=== PATIENT | female | born 1970 | race Caucasian/White ===

== ENCOUNTER 2016-12-17 00:27 | Inpatient (IN) | payer OTHER ==
[2016-12-17] MEDS ORDERED: Sodium Chloride 0.9% 500 ML IV ONE (01:06)
[2016-12-17 01:34] LABS: URINE BILIRUBIN NEGATIVE (NEGATIVE); URINE CLARITY Clear (Clear); URINE COLOR Colorless (YELLOW); URINE GLUCOSE (UA) NORMAL (Normal); URINE LEUKOCYTE ESTERASE NEG Leu/uL (Negative); URINE NITRATE NEGATIVE (NEGATIVE); URINE PROTEIN NEGATIVE (NEGATIVE); URINE UROBILINOGEN NORMAL mg/dL (0.2-1.0)
[2016-12-17 01:36] LABS: URINE BLOOD NEGATIVE (NEGATIVE)
[2016-12-17 01:40] LABS: HCG,QUALITATIVE URINE NEGATIVE (NEGATIVE)
[2016-12-17 01:49] LABS: BASO # 0.1 K/uL (0.0-0.2); EOS # 0.3 K/uL (0.0-0.7); EOS % 3.5 % (0.0-4.0); LYMPH % 25.2 % (20.0-40.0); MEAN CELL VOLUME 83.9 fL (81.0-99.0); MEAN CORPUSCULAR HEMOGLOBIN 26.3 pg (27.0-31.0); MEAN CORPUSCULAR HGB CONC 31.4 g/dL (33.0-37.0); MEAN PLATELET VOLUME 7.4 fL (7.2-11.7); MONO # 0.4 K/uL (0.0-0.8); MONO % 5.1 % (0.0-10.0); NEUT # 5.2 K/uL (1.8-7.0); NEUT % 65.2 % (50.0-75.0); NRBC % 0.1 % (0.0-2.0); RBC 4.16 Mil/uL (3.80-5.20); RED CELL DISTRIBUTION WIDTH 16.4 % (11.5-14.5)
[2016-12-17 02:00] LABS: ALBUMIN 4.1 g/dL (3.5-5.0)
[2016-12-17 02:03] LABS: AST/SGOT 65 U/L (14-36); BLOOD UREA NITROGEN 8 mg/dL (7-17); GFR AFRICAN-AMERICAN > 60; GFR NON-AFRICAN AMERICAN 59
[2016-12-17 02:04] LABS: ALT/SGPT 60 U/L (9-52); CALCIUM 7.7 mg/dl (8.6-10.4); LIPASE 178 U/L (23-300)
[2016-12-17] MEDS ORDERED: Ammonia 2% Inhalant ONE (02:17)
[2016-12-17 02:57] LABS: BARBITURATES, UR NEGATIVE (NEGATIVE); BENZODIAZEPINES, UR NEGATIVE (NEGATIVE)
[2016-12-17 03:01] LABS: OPIATES, UR NEGATIVE (NEGATIVE); PHENCYCLIDINE, UR NEGATIVE (NEGATIVE)
--- NOTE | 2016-12-17 03:16 | C.PDOC ---
History Of Present Illness 46 y/o female presents to ED for evaluation of abdominal pain- primarily suprapubic that radiates to the back since 17:00 today. Denies history of similar symptoms in the past. Patient notes foul odor in urine, urinary frequency, nausea, and diarrhea. Otherwise, patient denies any vomiting, fever, vaginal discharge or bleeding. Time Seen by Provider: 12/17/16 00:56 Chief Complaint (Nursing): Back Pain History Per: Patient, Family History/Exam Limitations: language barrier (plant facilities technician used) Onset/Duration Of Symptoms: Hrs Current Symptoms Are (Timing): Still Present Location Of Pain/Discomfort: Suprapubic Radiation Of Pain To:: Back, Flank Quality Of Discomfort: "Pain" Associated Symptoms: Nausea, Diarrhea, Back Pain, Urinary Symptoms. denies: Fever, Chills, Vomiting, Loss Of Appetite, Chest Pain, Constipation Exacerbating Factors: None Alleviating Factors: None Recent travel outside of the [place]: No Additional History Per: Patient Abnormal Vaginal Bleeding: No Past Medical History Reviewed: Historical Data, Nursing Documentation, Vital Signs Vital Signs: Last Vital Signs Temp 98.0 F 12/19/16 06:00 Pulse 75 12/18/16 18:53 Resp 18 12/18/16 18:53 BP 138/73 12/19/16 05:52 Pulse Ox 99 12/19/16 07:08 - Medical History PMH: Arthritis, HTN Family History: States: Unknown Family Hx - Social History Hx Tobacco Use: No Hx Alcohol Use: Yes Hx Substance Use: No - Immunization History Hx Tetanus Toxoid Vaccination: No Hx Influenza Vaccination: No Hx Pneumococcal Vaccination: No Review Of Systems Except As Marked, All Systems Reviewed And Found Negative. Constitutional: Negative for: Fever, Chills Gastrointestinal: Positive for: Nausea, Abdominal Pain, Diarrhea. Negative for : Vomiting, Constipation Genitourinary: Positive for: Frequency. Negative for: Dysuria, Incontinence, Hematuria Musculoskeletal: Positive for: Back Pain Neurological: Negative for: Weakness, Numbness Physical Exam - Physical Exam Appears: Non-toxic, No Acute Distress Skin: Normal Color, Warm, Dry Head: Atraumatic, Normacephalic Eye(s): bilateral: Normal Inspection, EOMI Nose: Normal Oral Mucosa: Moist Neck: Normal ROM, Supple Chest: Symmetrical Cardiovascular: Rhythm Regular, No Murmur Respiratory: Normal Breath Sounds, No Rales, No Rhonchi, No Wheezing Gastrointestinal/Abdominal: Soft, Tenderness (diffuse), No Distention, No Guarding, No Rebound Back: Paraspinal Tenderness (lumbar) Extremity: Normal ROM Neurological/Psych: Oriented x3, Normal Speech, Normal Cognition ED Course And Treatment - Laboratory Results Result Diagrams: 12/18/16 06:45 12/18/16 06:45 ECG: Interpreted By Me, Viewed By Me ECG Rhythm: Sinus Tachycardia ECG Interpretation: No Acute Changes Rate From EC (bpm) O2 Sat by Pulse Oximetry: 99 Pulse Ox Interpretation: Normal Progress Note: Blood work, urinalysis, abd & pelvis CT, head CT, EKG, CXR ordered and reviewed. Dr Saldana and I were called over by nurse for unresponsive pt. Pt has unlabored breathing and strong pulse. Not responsive to ammonia inhalants. Not responsive to painful stimuli, noted to have clenched jaw , and left arm. No convulsions noted. Dr Saldana ordered Ativan 3 mg was given. Pt became arousable. family notes she has had episode similar previously when she wakes up on her own. No known h/o seizures or work up for seizures. Patient became unresponsive again at CT scan, rapid response called and was given another dose of Ativan. Patient became alert. Dr Saldana discussed case with Dr Hallman who evalauted pt at bedside and agreed upon admmission to ICU. Dr Saldana discsussed case with Dr Salas, agreed upon adimission. Disposition - Disposition Disposition Time: 06:00 Condition: STABLE - Clinical Impression Clinical Impression: Alcohol intoxication, Abdominal pain, Seizure - PA / BAKERY CLERK / Resident Statement MD/DO has reviewed & agrees with the documentation as recorded. - Scribe Statement The provider has reviewed the documentation as recorded by the Maxwell Gold All medical record entries made by the Maxwell were at my direction and personally dictated by me. I have reviewed the chart and agree that the record accurately reflects my personal performance of the history, physical exam, medical decision making, and the department course for this patient. I have also personally directed, reviewed, and agree with the discharge instructions and disposition.
[2016-12-17] MEDS ORDERED: levETIRAcetam 1,000 MG in Sodium Chloride 0.9% 100 ML IVPB STA (03:27)
[2016-12-17] MEDS ORDERED: Folic Acid 1 MG, Thiamine 100 MG, Multivitamin (MVI) 10 ML in Dextrose 5% In Water 1,00... IV ONE (04:30)
[2016-12-17] MEDS ORDERED: Sodium Chloride 0.9% 1,000 ML IV SCH (04:30)
--- NOTE | 2016-12-17 04:30 | CP.CCUPN ---
CCU Subjective - Physician Review Events Since Last Encounter (Free Text): 12/17/16 The Patient was seen and examined at the bedside, Medical records reviewed, all clinical/lab/hemodynamic/radiographic data were reviewed and management issues were discussed and formulated, 46 Y/O F with PMHx of HTN, arthritis and H/O seizures for 3 years (never been worked up) Who presents to ED for evaluation of suprapubic abdominal pain that radiates to the back In the ER she was initially unresponsive, Ammonia inhalant used, no reaction the she had witnessed generalized tonic-clonic seizures in ER [id number]: [facility] was called since she became unresponsive while getting CT scan of head. Pt Sz condition was controlled with Ativan (received total of 6 mg) Head Ct scan done and was No acute intracranial abnormality. Labs revelries alcohol level of 257 ER VS:187/105, HR 99, O2 sat 100% 2LPM NC, R 17 Blood glucose checked, controlled Currently she is delirious, does not follow basic commands No signs of pain noted at this time, breathing comfortable and unlabored. She was admitted to ICU for further neurological work up and waxing and weaning of mental status, placed on Q1H Neuro check And to address alcohol abuse and uncontrolled BP CCU Objective - Vital Signs / Intake & Output Vital Signs (Last 4 hours): Vital Signs Temp Pulse Resp BP Pulse Ox 12/17/16 03:28 99 12/17/16 00:40 98.2 F 103 H 18 188/108 H 99 Intake and Output (Last 8hrs): Intake & Output 12/16/16 12/16/16 12/17/16 14:59 22:59 06:59 Weight 210 lb - Physical Exam Physical Exam Limitations: Positive for: Altered Mental Status Head: Positive for: Atraumatic, Normocephalic Pupils: Positive for: PERRL. Negative for: Sluggish, Non-Reactive Extroacular Muscles: Positive for: EOMI Conjunctiva: Positive for: Normal. Negative for: Injected, Icteric Mouth: Positive for: Moist Mucous Membranes Neck: Positive for: Normal Range of Motion, Trachea Midline. Negative for: Meningeal Signs, MIDLINE TENDERNESS, Paraspinal Tenderness, JVD, Lymphadenopathy , Bruit, Other Respiratory/Chest: Positive for: Clear to Auscultation, Good Air Exchange. Negative for: Respiratory Distress, Accessory Muscle Use Cardiovascular: Positive for: Regular Rate and Rhythm, Normal S1, S2, Peripheal Pulses Present. Negative for: Murmurs, Irregular Rhythm Abdomen: Positive for: Tenderness (Epigastric), Distention, Normal Bowel Sounds. Negative for: Peritoneal Signs Back: Negative for: CVA Tenderness Upper Extremity: Positive for: Normal Inspection, Normal ROM, NORMAL PULSES, Capillary Refill < 2s. Negative for: Cyanosis, Edema Lower Extremity: Positive for: Normal Inspection, NORMAL PULSES. Negative for: Edema, CALF TENDERNESS Neurological: Positive for: Motor Func Grossly Intact, Normal Sensory Function Psychiatric: Positive for: Alert, Intoxicated - Medications Active Medications: Active Medications Generic Name Dose Route Start Last Admin Trade Name Freq PRN Reason Stop Dose Admin Enoxaparin Sodium 40 mg 12/17/16 10:00 Lovenox SC DAILY [facility] Folic Acid 1 mg/ Thiamine HCl 1,011.2 mls @ 125 mls/hr 12/17/16 04:30 100 mg/ Multivitamins/Vitamin IV C 10 ml/ Dextrose .[id number] [facility] - Patient Studies Lab Studies: Lab Studies 12/17/16 12/17/16 12/17/16 Range/Units 02:24 02:00 01:46 WBC (4.8-10.8) K/uL RBC (3.80-5.20) Mil/uL Hgb (11.0-16.0) g/dL Hct (34.0-47.0) % MCV (81.0-99.0) fL MCH (27.0-31.0) pg MCHC (33.0-37.0) g/dL RDW (11.5-14.5) % Plt Count (130-400) K/uL MPV (7.2-11.7) fL Neut % (Auto) (50.0-75.0) % Lymph % (Auto) (20.0-40.0) % Garrett % (Auto) (0.0-10.0) % Eos % (Auto) (0.0-4.0) % Baso % (Auto) (0.0-2.0) % Neut # (1.8-7.0) K/uL Lymph # (1.0-4.3) K/uL Garrett # (0.0-0.8) K/uL Eos # (0.0-0.7) K/uL Baso # (0.0-0.2) K/uL Sodium 141 (132-148) mmol/L Potassium 4.3 (3.6-5.2) mmol/L Chloride 102 (98-107) mmol/L Carbon Dioxide 23 (22-30) mmol/L Anion Gap 20 (10-20) BUN 8 (7-17) mg/dL Creatinine 1.0 (0.7-1.2) MG/DL Est GFR ( Amer) > 60 Est GFR (Non-Af Amer) 59 Random Glucose 100 (65-105) mg/dL Calcium 7.7 L (8.6-10.4) mg/dl Total Bilirubin 0.7 (0.2-1.3) mg/dL AST 65 H D (14-36) U/L ALT 60 H D (9-52) U/L Alkaline Phosphatase 61 (38-126) U/L Total Protein 8.2 (6.3-8.3) g/dL Albumin 4.1 (3.5-5.0) g/dL Globulin 4.1 H (2.2-3.9) gm/dL Albumin/Globulin Ratio 1.0 (1.0-2.1) Lipase 178 (23-300) U/L Urine Color (YELLOW) Urine Clarity (Clear) Urine pH (5.0-8.0) Ur Specific [place] (1.003-1.030) Urine Protein (NEGATIVE) mg/dL Urine Glucose (UA) (Normal) mg/dL Urine Ketones (NEGATIVE) mg/dL Urine Blood (NEGATIVE) Urine Nitrate (NEGATIVE) Urine Bilirubin (NEGATIVE) Urine Urobilinogen (0.2-1.0) mg/dL Ur Leukocyte Esterase (Negative) Mignon/uL Urine WBC (Auto) (0-5) /hpf Urine RBC (Auto) (0-3) /hpf Urine HCG, Qual (NEGATIVE) Urine Opiates Screen Negative (NEGATIVE) Urine Methadone Screen Negative (NEGATIVE) Ur Barbiturates Screen Negative (NEGATIVE) Ur Phencyclidine Scrn Negative (NEGATIVE) Ur Amphetamines Screen Negative (NEGATIVE) U Benzodiazepines Scrn Negative (NEGATIVE) U Oth Cocaine Metabols Negative (NEGATIVE) U Cannabinoids Screen Negative (NEGATIVE) Alcohol, Quantitative 257 H (0-10) mg/dl 12/17/16 12/17/16 Range/Units 01:46 01:29 WBC 8.0 (4.8-10.8) K/uL RBC 4.16 (3.80-5.20) Mil/uL Hgb 11.0 (11.0-16.0) g/dL Hct 34.9 (34.0-47.0) % MCV 83.9 D (81.0-99.0) fL MCH 26.3 L (27.0-31.0) pg MCHC 31.4 L (33.0-37.0) g/dL RDW 16.4 H (11.5-14.5) % Plt Count 310 (130-400) K/uL MPV 7.4 (7.2-11.7) fL Neut % (Auto) 65.2 (50.0-75.0) % Lymph % (Auto) 25.2 (20.0-40.0) % Garrett % (Auto) 5.1 (0.0-10.0) % Eos % (Auto) 3.5 (0.0-4.0) % Baso % (Auto) 1.0 (0.0-2.0) % Neut # 5.2 (1.8-7.0) K/uL Lymph # 2.0 (1.0-4.3) K/uL Garrett # 0.4 (0.0-0.8) K/uL Eos # 0.3 (0.0-0.7) K/uL Baso # 0.1 (0.0-0.2) K/uL Sodium (132-148) mmol/L Potassium (3.6-5.2) mmol/L Chloride (98-107) mmol/L Carbon Dioxide (22-30) mmol/L Anion Gap (10-20) BUN (7-17) mg/dL Creatinine (0.7-1.2) MG/DL Est GFR ( Amer) Est GFR (Non-Af Amer) Random Glucose (65-105) mg/dL Calcium (8.6-10.4) mg/dl Total Bilirubin (0.2-1.3) mg/dL AST (14-36) U/L ALT (9-52) U/L Alkaline Phosphatase (38-126) U/L Total Protein (6.3-8.3) g/dL Albumin (3.5-5.0) g/dL Globulin (2.2-3.9) gm/dL Albumin/Globulin Ratio (1.0-2.1) Lipase (23-300) U/L Urine Color Colorless (YELLOW) Urine Clarity Clear (Clear) Urine pH 6.0 (5.0-8.0) Ur Specific [place] 1.002 L (1.003-1.030) Urine Protein Negative (NEGATIVE) mg/dL Urine Glucose (UA) Normal (Normal) mg/dL Urine Ketones Negative (NEGATIVE) mg/dL Urine Blood Negative (NEGATIVE) Urine Nitrate Negative (NEGATIVE) Urine Bilirubin Negative (NEGATIVE) Urine Urobilinogen Normal (0.2-1.0) mg/dL Ur Leukocyte Esterase Neg (Negative) Mignon/uL Urine WBC (Auto) 1 (0-5) /hpf Urine RBC (Auto) < 1 (0-3) /hpf Urine HCG, Qual Negative (NEGATIVE) Urine Opiates Screen (NEGATIVE) Urine Methadone Screen (NEGATIVE) Ur Barbiturates Screen (NEGATIVE) Ur Phencyclidine Scrn (NEGATIVE) Ur Amphetamines Screen (NEGATIVE) U Benzodiazepines Scrn (NEGATIVE) U Oth Cocaine Metabols (NEGATIVE) U Cannabinoids Screen (NEGATIVE) Alcohol, Quantitative (0-10) mg/dl Laboratory Results - last 24 hr 12/17/16 12/17/16 12/17/16 01:29 01:46 01:46 WBC 8.0 RBC 4.16 Hgb 11.0 Hct 34.9 MCV 83.9 D MCH 26.3 L MCHC 31.4 L RDW 16.4 H Plt Count 310 MPV 7.4 Neut % (Auto) 65.2 Lymph % (Auto) 25.2 Garrett % (Auto) 5.1 Eos % (Auto) 3.5 Baso % (Auto) 1.0 Neut # 5.2 Lymph # 2.0 Garrett # 0.4 Eos # 0.3 Baso # 0.1 Sodium 141 Potassium 4.3 Chloride 102 Carbon Dioxide 23 Anion Gap 20 BUN 8 Creatinine 1.0 Est GFR ( Amer) > 60 Est GFR (Non-Af Amer) 59 Random Glucose 100 Calcium 7.7 L Total Bilirubin 0.7 AST 65 H D ALT 60 H D Alkaline Phosphatase 61 Total Protein 8.2 Albumin 4.1 Globulin 4.1 H Albumin/Globulin Ratio 1.0 Lipase 178 Urine Color Colorless Urine Clarity Clear Urine pH 6.0 Ur Specific [place] 1.002 L Urine Protein Negative Urine Glucose (UA) Normal Urine Ketones Negative Urine Blood Negative Urine Nitrate Negative Urine Bilirubin Negative Urine Urobilinogen Normal Ur Leukocyte Esterase Neg Urine WBC (Auto) 1 Urine RBC (Auto) < 1 Urine HCG, Qual Negative Urine Opiates Screen Urine Methadone Screen Ur Barbiturates Screen Ur Phencyclidine Scrn Ur Amphetamines Screen U Benzodiazepines Scrn U Oth Cocaine Metabols U Cannabinoids Screen Alcohol, Quantitative 12/17/16 12/17/16 02:00 02:24 WBC RBC Hgb Hct MCV MCH MCHC RDW Plt Count MPV Neut % (Auto) Lymph % (Auto) Garrett % (Auto) Eos % (Auto) Baso % (Auto) Neut # Lymph # Garrett # Eos # Baso # Sodium Potassium Chloride Carbon Dioxide Anion Gap BUN Creatinine Est GFR ( Amer) Est GFR (Non-Af Amer) Random Glucose Calcium Total Bilirubin AST ALT Alkaline Phosphatase Total Protein Albumin Globulin Albumin/Globulin Ratio Lipase Urine Color Urine Clarity Urine pH Ur Specific [place] Urine Protein Urine Glucose (UA) Urine Ketones Urine Blood Urine Nitrate Urine Bilirubin Urine Urobilinogen Ur Leukocyte Esterase Urine WBC (Auto) Urine RBC (Auto) Urine HCG, Qual Urine Opiates Screen Negative Urine Methadone Screen Negative Ur Barbiturates Screen Negative Ur Phencyclidine Scrn Negative Ur Amphetamines Screen Negative U Benzodiazepines Scrn Negative U Oth Cocaine Metabols Negative U Cannabinoids Screen Negative Alcohol, Quantitative 257 H EKG/Cardiology Studies: Cardiology / EKG Studies 12/17/16 02:50 EKG [ELECTROCARDIOGRAM] Stat Comment: bed 8a Mode Of Transportation: BED Reason For Exam: cp Review of Systems - Review of Systems Systems not reviewed;Unavailable: Intoxicated Critical Care Progress Note - Extremities/Vascular Does the Patient have a Central Venous Catheter?: No Does the Patient need a Central Venous Catheter?: No Does the Patient have a Bryan Catheter?: No Does the Patient need a Bryan Catheter?: No - Nutrition Nutrition: Nutrition Category Date Time Status Heart Healthy Diet [DIET] Diets 12/17/16 Breakfast Ordered Assessment/Plan (1) Alcohol intoxication delirium Current Visit: Yes Status: Acute (2) Alcohol related seizure Current Visit: Yes Status: Acute (3) Alcohol intoxication Current Visit: Yes Status: Acute (4) HTN (hypertension) Current Visit: Yes Status: Acute - Assessment and Plan (Free Text) Assessment: - Admit to ICU, Admit to ICU for close observation and serial BP examination - Frequent Neuro check - NPO - Speech and swallow evaluation - PT/OT evaluation - Neurology consult - Consider EEG - Banana Bag - CIWA q4h - Thiamine, Folate, MVI - IV Hydrations - Blood glucose checked, controlled - Telemetry monitoring to assess for afib though low suspicion for embolus - Frequent neurochecks - Aspiraion and Seizure precautions - HOB elevation 30 degrees - DVT ppx: can do SQH
[2016-12-17 05:05] LABS: ABG ALLEN TEST POS; ARTERIAL BLOOD GAS HCO3 25.6 mmol/L (21-28); ARTERIAL BLOOD GAS HEMOGLOBIN 10.2 g/dL (11.7-17.4); ARTERIAL BLOOD GAS PCO2 57 mm/Hg (35-45); ARTERIAL BLOOD GAS PO2 141 mm/Hg (80-100); ARTERIAL BLOOD GAS TCO2 29.7 mmol/L (22-28)
--- NOTE | 2016-12-17 07:27 | CT ---
PROCEDURE: CT HEAD WITHOUT CONTRAST. HISTORY: seizure COMPARISON: None available. TECHNIQUE: Axial computed tomography images were obtained through the head/brain without intravenous contrast. Radiation dose: Total exam DLP = 1005 mGy-cm. This CT exam was performed using one or more of the following dose reduction techniques: Automated exposure control, adjustment of the mA and/or kV according to patient size, and/or use of iterative reconstruction technique. FINDINGS: HEMORRHAGE: No intracranial hemorrhage. BRAIN: No mass effect or edema. Minimal scattered focal lucencies in the subcortical and periventricular white matter suggestive for chronic microvascular ischemic change. VENTRICLES: Unremarkable. No hydrocephalus. CALVARIUM: Unremarkable. PARANASAL SINUSES: Unremarkable as visualized. No significant inflammatory changes. MASTOID AIR CELLS: Unremarkable as visualized. No inflammatory changes. OTHER FINDINGS: None. IMPRESSION: No acute intracranial abnormality. Minimal chronic microvascular ischemic change. If focal neurologic deficit persists, consider MRI. These findings were preliminarily reported at 3:30 a.m. on 12/17/[address] Rufus Blanco from [facility].
--- NOTE | 2016-12-17 07:37 | RAD ---
PROCEDURE: CHEST RADIOGRAPH, 1 VIEW HISTORY: seizure COMPARISON: 05/10/2014 FINDINGS: LUNGS: Moderate venous congestion with bibasilar airspace opacities and small left pleural effusion. PLEURA: As above. CARDIOVASCULAR: Cardiomegaly. Tortuous ectatic aorta. OSSEOUS STRUCTURES: No significant abnormalities. VISUALIZED UPPER ABDOMEN: Normal. OTHER FINDINGS: None. IMPRESSION: Moderate venous congestion with bibasilar airspace opacities and small left pleural effusion. Cardiomegaly. Tortuous ectatic aorta.
[2016-12-17] MEDS: Enoxaparin 40 mg Syringe SC SCH (10:23)
[2016-12-17] MEDS ORDERED: Iodixanol 320 MG/ML 100 ML BOTTLE IV ONE (13:47)
[2016-12-17] MEDS: Sodium Chloride 0.9% 1,000 ML IV SCH (14:16)
--- NOTE | 2016-12-17 14:57 | CT ---
PROCEDURE: CT Abdomen and Pelvis with contrast HISTORY: pain COMPARISON: None. TECHNIQUE: Contrast dose: 100 mL Visipaque 320 Radiation dose: Total exam DLP = 1230.15 mGy-cm. This CT exam was performed using one or more of the following dose reduction techniques: Automated exposure control, adjustment of the mA and/or kV according to patient size, and/or use of iterative reconstruction technique. FINDINGS: LOWER THORAX: Unremarkable. LIVER: Hepatomegaly. The liver measures approximately 25 cm craniocaudal. Diffusely diminished attenuation consistent with fatty infiltration. No focal mass. Smooth contour. No biliary dilatation. GALLBLADDER AND BILE DUCTS: Unremarkable. PANCREAS: Unremarkable. No gross lesion or ductal dilatation. SPLEEN: Unremarkable. ADRENALS: Unremarkable. No mass. KIDNEYS AND URETERS: Unremarkable. No hydronephrosis. No solid mass. VASCULATURE: Unremarkable. No aortic aneurysm. BOWEL: Unremarkable. No obstruction. No gross mural thickening. APPENDIX: Not positively identified. No secondary findings to suggest acute appendicitis. PERITONEUM: Unremarkable. No free fluid. No free air. LYMPH NODES: Unremarkable. No enlarged lymph nodes. BLADDER: Decompressed. Bryan catheter present. REPRODUCTIVE: Unremarkable uterus. 2.2 cm right adnexal cyst, likely ovarian. Probable prior tubal ligation. BONES: No acute fracture. OTHER FINDINGS: None. IMPRESSION: No acute abnormality. Hepatomegaly with fatty infiltration. Bryan catheter. Probable 2.2 cm right ovarian cyst.
[2016-12-17] MEDS: levETIRAcetam 500 MG in Sodium Chloride 0.9% 100 ML IVPB SCH (16:08)
--- NOTE | 2016-12-17 17:54 | CP.PCM.CON ---
History of Present Illness - History of Present Illness History of Present Illness: WITNESSED GTC SZ IN ED HX OF ETOH INTOXICATION BEEN LOADED WITH BARBRA CAT BRAIN NEGATIVE SEEN WITH HER DAUGHTER 3 YRS HX OF SEIZURES NEVER BEEN WORKED UP LAST SEIZURE LESS THAN A YEAR AT PRESENT MENTATION IS NORMAL SPEECH IS NORMAL NO CONFABULATION AND NO SIGN OF DT Past Patient History - Infectious Disease Hx of Infectious Diseases: None - Past Medical History & Family History Past Medical History?: Yes - Past Social History Smoking Status: Never Smoked - CARDIAC Hx Hypertension: Yes - MUSCULOSKELETAL/RHEUMATOLOGICAL Hx Arthritis: Yes - GASTROINTESTINAL Hx Nausea: Yes - PSYCHIATRIC Hx Substance Use: No - SURGICAL HISTORY Other/Comment: "knee surgery" - ANESTHESIA Hx Anesthesia: Yes Hx Anesthesia Reactions: No Has any member of the family had a problem w/ anesthesia?: No Meds Allergies/Adverse Reactions: Allergies Allergy/AdvReac Type Severity Reaction Status Date / Time No Known Allergies Allergy Unverified 12/17/16 00:40 - Medications Medications: Current Medications Enoxaparin Sodium (Lovenox) 40 mg SC DAILY [facility] Last Admin: 12/17/16 10:23 Dose: 40 mg Sodium Chloride (Sodium Chloride 0.9%) 1,000 mls @ 75 mls/hr IV .[id number] HÉCTOR Last Admin: 12/17/16 14:16 Dose: 75 mls/hr Levetiracetam 500 mg/ Sodium (Chloride) 105 mls @ 420 mls/hr IVPB Q12H HÉCTOR Last Admin: 12/17/16 16:08 Dose: 420 mls/hr Lorazepam (Ativan) 1 mg IVP Q4H PRN PRN Reason: Symptoms of alcohol withdrawl Last Admin: 12/17/16 10:00 Dose: 1 mg Physical Exam - Constitutional Appears: Non-toxic, Agitated - Head Exam Head Exam: NORMAL INSPECTION - Eye Exam Eye Exam: EOMI - Respiratory Exam Respiratory Exam: NORMAL BREATHING PATTERN - Cardiovascular Exam Cardiovascular Exam: REGULAR RHYTHM - Expanded Neurological Exam Expanded Cranial nerves: EOM's Intact: Normal, Facial Palsey w/Forehead Movement: Normal , Facial Palsey w/o Forehead Movement: Normal, Facial Sensation: Normal, Gag Reflex: Normal, Nystagmus: Normal, Tongue Deviation: Normal Cerebellar Function: Finger to Nose: Normal Upper motor neuron: Babinski Sign: Normal Sensory exam: Lower Extremity Temperature: Abnormal Right, Abnormal Left ( NEUROPATHY) Neuro motor strength exam: Left Upper Extremity: 5, Right Upper Extremity: 5, Left Lower Extremity: 5, Right Lower Extremity: 5 DTR: Achilles Tendon Left: 0, Achilles Tendon Right: 0, Bicep Left: 1+, Bicep Right: 1+, Brachioradialis Left: 1+, Brachioradialis Right: 1+, Patellar Left: 2 +, Patellar Right: 2+, Tricep Left: 0, Tricep Right: 0 Results - Vital Signs Recent Vital Signs: Last Vital Signs Temp 98.2 F 12/17/16 16:00 Pulse 83 12/17/16 16:30 Resp 19 12/17/16 16:30 BP 170/99 H 12/17/16 15:01 Pulse Ox 99 12/17/16 16:30 - Labs Result Diagrams: 12/17/16 01:46 12/17/16 01:46 Labs: Laboratory Results - last 24 hr 12/17/16 05:02 Puncture Site R rad pCO2 57 H pO2 141 H HCO3 25.6 ABG pH 7.30 L ABG Total CO2 29.7 H ABG O2 Saturation 100.0 H ABG Base Excess 0.8 ABG Hemoglobin 10.2 L ABG Carboxyhemoglobin 2.3 H POC ABG HHb (Measured) 0.0 ABG Methemoglobin 1.2 Arik Test Pos Hgb O2 Saturation 96.4 Liter Flow 4.0 Assessment & Plan - Assessment and Plan (Free Text) Assessment: DT PROPYLAXIS HYDRATION B1/ATIVAN CONTINUE KEPPRA FOR NOW UNTIL THE WORK UP IS COMPLETED MRI BRAIN /EEG FALL AND SEIZURE PRECAUTION NEEDS WORK UP FOR HIP AND PELVIC PATH - Date & Time Date: 12/17/16 Time: 17:57
--- NOTE | 2016-12-17 23:28 | CP.PCM.HP ---
History of Present Illness - History of Present Illness History of Present Illness: CC; SEIZURE 46 y/o female WHO DRINKS HEAVILY, POOR HISTORIAN, RIGHT NOW SHE IS ANXIOUS presents to ED SEIZURE EPISDOE, ACCORDING TO HER SHE DRINKS DAILY IN MORNING AND EVENING, THE INITIAL SEIZURE WAS NOT WITNESSED WHEN SHE WAKE UP SHE CAME TO ER WHERE ANOTHER WITNESSED GTC SZ IN ED HX OF ETOH INTOXICATION BEEN LOADED WITH [facility] CAT BRAIN NEGATIVE SEEN WITH HER DAUGHTER 3 YRS HX OF SEIZURES NEVER BEEN WORKED UP LAST SEIZURE LESS THAN A YEAR AT PRESENT MENTATION IS NORMAL SPEECH IS NORMAL NO CONFABULATION AND NO SIGN OF DT Present on Admission - Present on Admission Any Indicators Present on Admission: Yes Review of Systems - Review of Systems Systems not reviewed;Unavailable: Unstable Vital Signs - Constitutional Constitutional: Fatigue, Lethargy, Malaise - EENT Eyes: absent: As Per HPI, Blind Spots, Blurred Vision, Change in Vision, Decreased Night Vision, Diplopia, Discharge, Dry Eye, Exophthalmos, Floaters, Irritation, Itchy Eyes, Loss of Peripheral Vision, Pain, Photophobia, Requires Corrective Lenses, Sees Flashes, Spots in Vision, Tunnel Vision, Other Visual Disturbances, Loss of Vision, Other Nose/Mouth/Throat: absent: As Per HPI, Epistaxis, Nasal Congestion, Nasal Discharge, Nasal Obstruction, Nasal Trauma, Nose Pain, Post Nasal Drip, Sinus Pain, Sinus Pressure, Bleeding Gums, Change in Voice, Dental Pain, Dry Mouth, Dysphagia, Halitosis, Hoarsness, Lip Swelling, Mouth Lesions, Mouth Pain, Odynophagia, Sore Throat, Throat Swelling, Tongue Swelling, Facial Pain, Neck Pain, Neck Mass, Other - Respiratory Respiratory: absent: As Per HPI, Cough, Dyspnea, Hemoptysis, Dyspnea on Exertion , Wheezing, Snoring, Stridor, Pain on Inspiration, Chest Congestion, Excessive Mucous Production, Change in Mucous Color, Pain with Coughing, Other - Gastrointestinal Gastrointestinal: Abdominal Pain - Genitourinary Genitourinary: Urinary Incontinence, Urinary Frequency - Neurological Neurological: Abnormal Movements, Dizziness, Headaches - Psychiatric Psychiatric: Abnormal Sleep Pattern, Anxiety - Endocrine Endocrine: Flushing, Palpitations Past Patient History - Infectious Disease Hx of Infectious Diseases: None - Past Medical History & Family History Past Medical History?: Yes - Past Social History Smoking Status: Never Smoked - CARDIAC Hx Hypertension: Yes - MUSCULOSKELETAL/RHEUMATOLOGICAL Hx Arthritis: Yes - GASTROINTESTINAL Hx Nausea: Yes - PSYCHIATRIC Hx Substance Use: No - SURGICAL HISTORY Other/Comment: "knee surgery" - ANESTHESIA Hx Anesthesia: Yes Hx Anesthesia Reactions: No Has any member of the family had a problem w/ anesthesia?: No Meds Allergies/Adverse Reactions: Allergies Allergy/AdvReac Type Severity Reaction Status Date / Time No Known Allergies Allergy Unverified 12/17/16 00:40 Physical Exam - Constitutional Appears: Toxic, Agitated - Eye Exam Eye Exam: EOMI, Normal appearance, PERRL Pupil Exam: NORMAL ACCOMODATION, PERRL - Respiratory Exam Respiratory Exam: Clear to Auscultation Bilateral, NORMAL BREATHING PATTERN - Cardiovascular Exam Cardiovascular Exam: Tachycardia, +S1, +S2 - GI/Abdominal Exam GI & Abdominal Exam: Normal Bowel Sounds, Soft. absent: Tenderness - Neurological Exam Neurological exam: Altered, CN II-XII Intact, Normal Gait, Reflexes Normal - Psychiatric Exam Psychiatric exam: Anxious - Skin Skin Exam: Dry, Intact, Normal Color, Warm Results - Vital Signs Recent Vital Signs: Last Vital Signs Temp 98.2 F 12/17/16 16:00 Pulse 83 12/17/16 18:51 Resp 20 12/17/16 18:51 BP 181/103 H 12/17/16 18:51 Pulse Ox 99 12/17/16 18:51 - Labs Result Diagrams: 12/17/16 01:46 12/17/16 01:46 Labs: Laboratory Results - last 24 hr 12/17/16 05:02 Puncture Site R rad pCO2 57 H pO2 141 H HCO3 25.6 ABG pH 7.30 L ABG Total CO2 29.7 H ABG O2 Saturation 100.0 H ABG Base Excess 0.8 ABG Hemoglobin 10.2 L ABG Carboxyhemoglobin 2.3 H POC ABG HHb (Measured) 0.0 ABG Methemoglobin 1.2 Arik Test Pos Hgb O2 Saturation 96.4 Liter Flow 4.0 Assessment & Plan (1) Alcohol intoxication delirium Assessment and Plan: DT PROPYLAXIS HYDRATION B1/ATIVAN CONTINUE KEPPRA FOR NOW UNTIL THE WORK UP IS COMPLETED MRI BRAIN /EEG FALL AND SEIZURE PRECAUTION NEEDS WORK UP FOR HIP AND PELVIC PATH Status: Acute (2) Alcohol related seizure Status: Acute
[2016-12-18] MEDS: Nitroglycerin 2% Ointment Foilpak UD TOP SCH ×2 (01:22→07:12)
[2016-12-18] MEDS: Sodium Chloride 0.9% 1,000 ML IV SCH (03:10)
[2016-12-18] MEDS: levETIRAcetam 500 MG in Sodium Chloride 0.9% 100 ML IVPB SCH ×2 (03:31→16:13)
[2016-12-18 06:51] LABS: BASO # 0.1 K/uL (0.0-0.2); BASO % 0.6 % (0.0-2.0); EOS # 0.3 K/uL (0.0-0.7); EOS % 3.7 % (0.0-4.0); LYMPH # 1.6 K/uL (1.0-4.3); MEAN CELL VOLUME 84.7 fL (81.0-99.0); MEAN CORPUSCULAR HEMOGLOBIN 26.9 pg (27.0-31.0); MEAN CORPUSCULAR HGB CONC 31.8 g/dL (33.0-37.0); MEAN PLATELET VOLUME 7.8 fL (7.2-11.7); MONO # 0.5 K/uL (0.0-0.8); MONO % 5.5 % (0.0-10.0); NEUT % 71.2 % (50.0-75.0); RBC 3.7 Mil/uL (3.80-5.20); RED CELL DISTRIBUTION WIDTH 16.5 % (11.5-14.5); WHITE BLOOD COUNT 8.4 K/uL (4.8-10.8)
[2016-12-18 06:59] LABS: ALBUMIN 3.2 g/dL (3.5-5.0)
[2016-12-18 07:02] LABS: GFR AFRICAN-AMERICAN > 60; GFR NON-AFRICAN AMERICAN > 60
[2016-12-18 07:03] LABS: ALB/GLOB RATIO 0.9 (1.0-2.1); ALT/SGPT 52 U/L (9-52); AST/SGOT 55 U/L (14-36); BLOOD UREA NITROGEN 10 mg/dL (7-17); CALCIUM 7.9 mg/dl (8.6-10.4)
[2016-12-18 07:04] LABS: MAGNESIUM 1.5 mg/dL (1.6-2.3)
[2016-12-18] MEDS ORDERED: Magnesium Sulfate 1 gm in D5W 1 GM/100 ML BAG IVPB ONE (08:46)
[2016-12-18] MEDS ORDERED: Potassium Chloride 20 mEq ER Tab PO ONE (08:50)
[2016-12-18] MEDS: Enoxaparin 40 mg Syringe SC SCH (09:11)
--- NOTE | 2016-12-18 10:50 | CP.CCUPN ---
CCU Subjective - Physician Review Events Since Last Encounter (Free Text): 12/18/16 10:45 Patient is clinically improved today, and stable. No complaints. CCU Objective - Vital Signs / Intake & Output Vital Signs (Last 4 hours): Vital Signs Temp Pulse Resp BP Pulse Ox 12/18/16 10:01 72 16 154/90 H 98 12/18/16 10:00 68 13 99 12/18/16 09:50 73 19 98 12/18/16 09:40 71 17 98 12/18/16 09:30 76 20 97 12/18/16 09:20 76 20 98 12/18/16 09:10 75 18 99 12/18/16 09:00 78 19 151/79 H 98 12/18/16 08:50 76 18 100 12/18/16 08:40 78 22 97 12/18/16 08:30 75 17 99 12/18/16 08:20 78 22 98 12/18/16 08:10 67 14 98 12/18/16 08:01 68 14 134/88 97 12/18/16 08:00 97.5 F L 67 14 134/88 98 12/18/16 07:50 65 13 99 12/18/16 07:40 71 13 100 12/18/16 07:30 66 14 97 12/18/16 07:20 65 14 98 12/18/16 07:10 62 13 98 12/18/16 07:01 64 14 151/89 H 96 12/18/16 07:00 70 13 97 12/18/16 06:50 65 13 98 Intake and Output (Last 8hrs): Intake & Output 12/17/16 12/18/16 12/18/16 22:59 06:59 14:59 Intake Total 910 625 675 Output Total 970 850 300 Balance -60 -225 375 Weight 234 lb 3.2 oz Intake: Intake, IV Amount 550 625 325 Left Hand 550 625 325 Oral 360 350 Output: Urine 970 850 300 Urethral (Bryan) 970 850 300 Stool 0 0 - Physical Exam Head: Positive for: Atraumatic, Normocephalic Pupils: Positive for: PERRL. Negative for: Sluggish, Non-Reactive Extroacular Muscles: Positive for: EOMI Conjunctiva: Positive for: Normal. Negative for: Injected, Icteric Mouth: Positive for: Moist Mucous Membranes Neck: Positive for: Normal Range of Motion, Trachea Midline. Negative for: Meningeal Signs, MIDLINE TENDERNESS, Paraspinal Tenderness, JVD, Lymphadenopathy , Bruit, Other Respiratory/Chest: Positive for: Clear to Auscultation, Good Air Exchange. Negative for: Respiratory Distress, Accessory Muscle Use Cardiovascular: Positive for: Regular Rate and Rhythm, Normal S1, S2, Peripheal Pulses Present. Negative for: Murmurs, Irregular Rhythm Abdomen: Positive for: Tenderness, Distention, Normal Bowel Sounds. Negative for: Peritoneal Signs Neurological: Positive for: GCS=15, CN II-XII Intact, Speech Normal, Motor Func Grossly Intact, Normal Sensory Function Psychiatric: Positive for: Alert, Oriented x 3 - Medications Active Medications: Active Medications Generic Name Dose Route Start Last Admin Trade Name Freq PRN Reason Stop Dose Admin Acetaminophen 650 mg 12/18/16 08:47 12/18/16 08:55 Tylenol 325mg Tab PO 650 mg Q6 PRN Administration Other Amlodipine Besylate 5 mg 12/17/16 18:14 12/18/16 09:10 Norvasc PO 5 mg DAILY [facility] Administration Clonidine HCl 1 patch 12/17/16 22:45 12/17/16 22:46 Catapres-Tts2 0.2 Mg/24 Hr TD 1 patch QWK [facility] Administration Enoxaparin Sodium 40 mg 12/17/16 10:00 12/18/16 09:11 Lovenox SC 40 mg DAILY [facility] Administration Hydrochlorothiazide 25 mg 12/17/16 18:14 12/18/16 09:16 Hydrodiuril PO 25 mg DAILY [facility] Administration Levetiracetam 500 mg/ Sodium 105 mls @ 420 mls/hr 12/17/16 16:00 12/18/16 03: 31 Chloride IVPB 420 mls/hr Q12H [facility] Administration Lorazepam 1 mg 12/17/16 09:29 12/18/16 00:02 Ativan IVP 1 mg Q4H PRN Administration Symptoms of alcohol withdrawl Multivitamins 1 tab 12/18/16 10:30 Hexavitamin PO DAILY [facility] Nitroglycerin 1 ea 12/18/16 01:10 12/18/16 07:12 Nitro-Bid 2% Oint TOP 1 ea Q6 [facility] Administration - Patient Studies Lab Studies: Lab Studies 12/18/16 12/18/16 Range/Units 06:45 06:45 WBC 8.4 (4.8-10.8) K/uL RBC 3.70 L (3.80-5.20) Mil/uL Hgb 10.0 L (11.0-16.0) g/dL Hct 31.3 L (34.0-47.0) % MCV 84.7 (81.0-99.0) fL MCH 26.9 L (27.0-31.0) pg MCHC 31.8 L (33.0-37.0) g/dL RDW 16.5 H (11.5-14.5) % Plt Count 263 (130-400) K/uL MPV 7.8 (7.2-11.7) fL Neut % (Auto) 71.2 (50.0-75.0) % Lymph % (Auto) 19.0 L (20.0-40.0) % [place] % (Auto) 5.5 (0.0-10.0) % Eos % (Auto) 3.7 (0.0-4.0) % Baso % (Auto) 0.6 (0.0-2.0) % Neut # 6.0 (1.8-7.0) K/uL Lymph # 1.6 (1.0-4.3) K/uL [place] # 0.5 (0.0-0.8) K/uL Eos # 0.3 (0.0-0.7) K/uL Baso # 0.1 (0.0-0.2) K/uL Sodium 137 (132-148) mmol/L Potassium 3.3 L (3.6-5.2) mmol/L Chloride 101 (98-107) mmol/L Carbon Dioxide 26 (22-30) mmol/L Anion Gap 13 (10-20) BUN 10 (7-17) mg/dL Creatinine 0.9 (0.7-1.2) MG/DL Est GFR ( Amer) > 60 Est GFR (Non-Af Amer) > 60 Random Glucose 98 (65-105) mg/dL Calcium 7.9 L (8.6-10.4) mg/dl Phosphorus 3.1 (2.5-4.5) mg/dL Magnesium 1.5 L (1.6-2.3) mg/dL Total Bilirubin 0.6 (0.2-1.3) mg/dL AST 55 H (14-36) U/L ALT 52 (9-52) U/L Alkaline Phosphatase 74 (38-126) U/L Total Protein 6.8 (6.3-8.3) g/dL Albumin 3.2 L D (3.5-5.0) g/dL Globulin 3.6 (2.2-3.9) gm/dL Albumin/Globulin Ratio 0.9 L (1.0-2.1) Laboratory Results - last 24 hr 12/18/16 12/18/16 06:45 06:45 WBC 8.4 RBC 3.70 L Hgb 10.0 L Hct 31.3 L MCV 84.7 MCH 26.9 L MCHC 31.8 L RDW 16.5 H Plt Count 263 MPV 7.8 Neut % (Auto) 71.2 Lymph % (Auto) 19.0 L [place] % (Auto) 5.5 Eos % (Auto) 3.7 Baso % (Auto) 0.6 Neut # 6.0 Lymph # 1.6 [place] # 0.5 Eos # 0.3 Baso # 0.1 Sodium 137 Potassium 3.3 L Chloride 101 Carbon Dioxide 26 Anion Gap 13 BUN 10 Creatinine 0.9 Est GFR ( Amer) > 60 Est GFR (Non-Af Amer) > 60 Random Glucose 98 Calcium 7.9 L Phosphorus 3.1 Magnesium 1.5 L Total Bilirubin 0.6 AST 55 H ALT 52 Alkaline Phosphatase 74 Total Protein 6.8 Albumin 3.2 L D Globulin 3.6 Albumin/Globulin Ratio 0.9 L Review of Systems - Review of Systems All systems: reviewed and no additional remarkable complaints except Critical Care Progress Note - Nutrition Nutrition: Nutrition Category Date Time Status Heart Healthy Diet [DIET] Diets 12/17/16 Dinner Active Assessment/Plan (1) Alcohol related seizure Assessment and plan: 46yo F. PMHx HTN, arthritis, ETOH abuse. p/w alcohol induced seizure activity. Neuro: Alert and oriented 3. Patient supposedly has three-year history of seizure disorder, but not on any medication. It is possible that her alcohol intoxication led to a decrease in her seizure threshold, leading to an onset of seizure activity. Continue Keppra bid, can transition to oral, Neurology Dr. Fahad following. Follow-up EEG results and MRI results. Patient alert and oriented and can stop CIWA protocol. Pulm: No acute issues, breathing spontaneously on room air CV: Hypertensive, patient was not on any home meds. Started patient on hydrochlorothiazide, lisinopril and Norvasc. Hem: No acute issues Renal: No acute issues, urine output within normal limits, will monitor. Endo: No acute issues GI: Low-sodium diet ID: No acute issues DVT proph - Lovenox GI proph - not currently indicated D/C Bryan Code status - full code Patient is clinically stable for downgrade floors. Critical Care Time spent 35 minutes Multi-disciplinary rounds were performed with house staff, nursing, speech therapy, respiratory therapy, pharmacy and nutrition with integrated input from the primary team/attending and other consulting services. The documented time is cumulative and includes review of patient data/exams/labs/chart review and examination of the patient on rounds and throughout the day; time is exclusive of any procedures or teaching time. Current Visit: Yes Status: Acute
[2016-12-18] MEDS: Multiple Vitamins Tab PO SCH (11:17)
[2016-12-18] MEDS ORDERED: Gadodiamide 287 mg/ml 20 ml IV ONE (12:35)
--- NOTE | 2016-12-18 14:03 | MRI ---
PROCEDURE: MRI BRAIN WITH AND WITHOUT CONTRAST HISTORY: SEIZURE E/O MASS COMPARISON: None. TECHNIQUE: Multiplanar, multisequence MR images of the brain were obtained with and without intravenous contrast enhancement. FINDINGS: HEMORRHAGE: None DWI: No evidence of an acute or early subacute infarction. BRAIN PARENCHYMA: No mass,mass effect or edema. There are few foci of hyperintense FLAIR signal in the white matter nonspecific and may represent chronic microvascular ischemic disease. The differential diagnosis includes sequela of infection or inflammatory process. ENHANCEMENT: No abnormal intracranial enhancement. VENTRICLES: Unremarkable. No hydrocephalus. CRANIUM: Unremarkable. ORBITS: Grossly unremarkable. PARANASAL SINUSES/MASTOIDS: Clear VASCULAR SYSTEM: Skull base flow voids intact. OTHER FINDINGS: None . IMPRESSION: No evidence of mass lesion mass effect or midline shift. No evidence of acute pathology in the brain. Few scattered small foci of hyperintense FLAIR signal in the white matter may represent chronic microvascular ischemic disease. Other consideration includes Lyme disease, migraine or less likely the mini nasion disease.
--- NOTE | 2016-12-19 01:43 | CP.PCM.PN ---
Subjective - Date & Time of Evaluation Date of Evaluation: 12/18/16 Time of Evaluation: 21:00 - Subjective Subjective: PT SEEN AND EXAMINED, IS FEELING BETTER, NO MORE SEIZURES EPISODES Objective - Vital Signs/Intake and Output Vital Signs (last 24 hours): Temp Pulse Resp BP Pulse Ox 98.4 F 75 18 158/85 H 98 12/18/16 16:00 12/18/16 18:53 12/18/16 18:53 12/18/16 18:52 12/18/16 18:53 Intake and Output: 12/18/16 12/19/16 18:59 06:59 Intake Total 1425 300 Output Total 925 500 Balance 500 -200 - Medications Medications: Current Medications Acetaminophen (Tylenol 325mg Tab) 650 mg PO Q6 PRN PRN Reason: Other Last Admin: 12/18/16 08:55 Dose: 650 mg Amlodipine Besylate (Norvasc) 10 mg PO DAILY [facility] Enoxaparin Sodium (Lovenox) 40 mg SC DAILY [facility] Last Admin: 12/18/16 09:11 Dose: 40 mg Hydrochlorothiazide (Hydrodiuril) 50 mg PO DAILY [facility] Levetiracetam 500 mg/ Sodium (Chloride) 105 mls @ 420 mls/hr IVPB Q12H [facility] Last Admin: 12/18/16 16:13 Dose: 420 mls/hr Lisinopril (Zestril) 10 mg PO Q24H [facility] Last Admin: 12/18/16 16:13 Dose: 10 mg Multivitamins (Hexavitamin) 1 tab PO DAILY [facility] Last Admin: 12/18/16 11:17 Dose: 1 tab - Labs Labs: 12/18/16 06:45 12/18/16 06:45 - Constitutional Appears: No Acute Distress - Head Exam Head Exam: ATRAUMATIC, NORMAL INSPECTION, NORMOCEPHALIC - Eye Exam Eye Exam: EOMI, Normal appearance, PERRL Pupil Exam: NORMAL ACCOMODATION, PERRL - Respiratory Exam Respiratory Exam: Clear to Ausculation Bilateral, NORMAL BREATHING PATTERN - Cardiovascular Exam Cardiovascular Exam: REGULAR RHYTHM, +S1, +S2. absent: Murmur - GI/Abdominal Exam GI & Abdominal Exam: Soft, Normal Bowel Sounds. absent: Tenderness Assessment and Plan (1) Alcohol intoxication delirium Status: Acute (2) Alcohol related seizure Status: Acute (3) UTI (urinary tract infection) Status: Acute - Assessment and Plan (Free Text) Assessment: 46yo F. PMHx HTN, arthritis, ETOH abuse. p/w alcohol induced seizure activity. Neuro: Alert and oriented 3. Patient supposedly has three-year history of seizure disorder, but not on any medication. It is possible that her alcohol intoxication led to a decrease in her seizure threshold, leading to an onset of seizure activity. Continue Keppra bid, can transition to oral, Neurology Dr. Vásquez following. Follow-up EEG results and MRI results. Patient alert and oriented and can stop CIWA protocol. Pulm: No acute issues, breathing spontaneously on room air CV: Hypertensive, patient was not on any home meds. Started patient on hydrochlorothiazide, lisinopril and Norvasc. Hem: No acute issues Renal: No acute issues, urine output within normal limits, will monitor. Endo: No acute issues GI: Low-sodium diet ID: No acute issues DVT proph - Lovenox GI proph - not currently indicated D/C Bryan Code status - full code Patient is clinically stable for downgrade floors.
[2016-12-19] MEDS: levETIRAcetam 500 MG in Sodium Chloride 0.9% 100 ML IVPB SCH ×2 (04:00→16:19)
[2016-12-19] MEDS: Enoxaparin 40 mg Syringe SC SCH (09:28)
[2016-12-19] MEDS: Multiple Vitamins Tab PO SCH (09:28)
[2016-12-19 10:07] LABS: BASO # 0.1 K/uL (0.0-0.2); BASO % 0.6 % (0.0-2.0); EOS # 0.3 K/uL (0.0-0.7); EOS % 3.1 % (0.0-4.0); HEMOGLOBIN 11.2 g/dL (11.0-16.0); LYMPH # 1.5 K/uL (1.0-4.3); MEAN CORPUSCULAR HEMOGLOBIN 26.9 pg (27.0-31.0); MEAN PLATELET VOLUME 7.6 fL (7.2-11.7); MONO # 0.5 K/uL (0.0-0.8); MONO % 5.2 % (0.0-10.0); NEUT # 7.3 K/uL (1.8-7.0); NEUT % 76.1 % (50.0-75.0); RBC 4.17 Mil/uL (3.80-5.20); RED CELL DISTRIBUTION WIDTH 16.5 % (11.5-14.5); WHITE BLOOD COUNT 9.7 K/uL (4.8-10.8)
[2016-12-19 10:15] LABS: ALBUMIN 3.9 g/dL (3.5-5.0)
[2016-12-19 10:17] LABS: GFR AFRICAN-AMERICAN > 60; GFR NON-AFRICAN AMERICAN 59
[2016-12-19] MEDS: Pantoprazole 40 mg EC Tab PO SCH (10:17)
[2016-12-19 10:18] LABS: ALT/SGPT 56 U/L (9-52); AST/SGOT 43 U/L (14-36); BLOOD UREA NITROGEN 13 mg/dL (7-17)
[2016-12-19 10:19] LABS: CALCIUM 9.3 mg/dl (8.6-10.4); MAGNESIUM 1.9 mg/dL (1.6-2.3)
--- NOTE | 2016-12-19 21:43 | CP.PCM.PN ---
Subjective - Date & Time of Evaluation Date of Evaluation: 12/19/16 Time of Evaluation: 10:30 - Subjective Subjective: Patient seen and examined, is seizure free, she has been seen by neurology, denies any SOB, urine cultures positive for E.Coli afebrile, B.P is normal Objective - Vital Signs/Intake and Output Vital Signs (last 24 hours): Temp Pulse Resp BP Pulse Ox 98.5 F 79 19 159/92 H 97 12/19/16 20:00 12/19/16 20:00 12/19/16 20:00 12/19/16 20:02 12/19/16 16:00 Intake and Output: 12/19/16 12/20/16 18:59 06:59 Intake Total 850 Output Total 1800 Balance -950 - Medications Medications: Current Medications Acetaminophen (Tylenol 325mg Tab) 650 mg PO Q6 PRN PRN Reason: Other Last Admin: 12/18/16 08:55 Dose: 650 mg Amlodipine Besylate (Norvasc) 10 mg PO DAILY [facility] Last Admin: 12/19/16 09:28 Dose: 10 mg Enoxaparin Sodium (Lovenox) 40 mg SC DAILY [facility] Last Admin: 12/19/16 09:28 Dose: 40 mg Hydrochlorothiazide (Hydrodiuril) 50 mg PO DAILY [facility] Last Admin: 12/19/16 09:28 Dose: 50 mg Levetiracetam 500 mg/ Sodium (Chloride) 105 mls @ 420 mls/hr IVPB Q12H [facility] Last Admin: 12/19/16 16:19 Dose: 420 mls/hr Ceftriaxone Sodium 1 gm/ (Sodium Chloride) 100 mls @ 100 mls/hr IVPB Q24H [facility] Last Admin: 12/19/16 10:17 Dose: 100 mls/hr Lisinopril (Zestril) 10 mg PO Q24H [facility] Last Admin: 12/19/16 17:50 Dose: 10 mg Multivitamins (Hexavitamin) 1 tab PO DAILY [facility] Last Admin: 12/19/16 09:28 Dose: 1 tab Pantoprazole Sodium (Protonix Ec Tab) 40 mg PO DAILY [facility] Last Admin: 12/19/16 10:17 Dose: 40 mg - Labs Labs: 12/19/16 10:04 12/19/16 10:04 - Constitutional Appears: No Acute Distress - Head Exam Head Exam: ATRAUMATIC, NORMAL INSPECTION, NORMOCEPHALIC - Eye Exam Eye Exam: EOMI, Normal appearance, PERRL Pupil Exam: NORMAL ACCOMODATION, PERRL - Respiratory Exam Respiratory Exam: Clear to Ausculation Bilateral, NORMAL BREATHING PATTERN - Cardiovascular Exam Cardiovascular Exam: REGULAR RHYTHM, +S1, +S2. absent: Murmur - GI/Abdominal Exam GI & Abdominal Exam: Soft, Normal Bowel Sounds. absent: Tenderness - Neurological Exam Neurological Exam: Alert, Awake, CN II-XII Intact, Normal Gait, Oriented x3 - Psychiatric Exam Psychiatric exam: Normal Affect, Normal Mood Assessment and Plan (1) Alcohol intoxication delirium Status: Acute (2) Alcohol related seizure Status: Acute
[2016-12-20 00:02] VITALS: PULSE 87; RESP 20; O2SAT 98
[2016-12-20] MEDS: levETIRAcetam 500 MG in Sodium Chloride 0.9% 100 ML IVPB SCH (03:03)
[2016-12-20] MEDS: Pantoprazole 40 mg EC Tab PO SCH (11:08)
[2016-12-20] MEDS: Multiple Vitamins Tab PO SCH (11:08)
[2016-12-20] MEDS: Enoxaparin 40 mg Syringe SC SCH (11:08)
--- NOTE | 2016-12-20 11:36 | CP.PCM.PN ---
Subjective - Date & Time of Evaluation Date of Evaluation: 12/20/16 Time of Evaluation: 21:00 Objective - Vital Signs/Intake and Output Vital Signs (last 24 hours): Temp Pulse Resp BP Pulse Ox 98 F 87 20 116/62 98 12/20/16 04:00 12/20/16 00:00 12/20/16 00:00 12/20/16 04:02 12/20/16 00:00 Intake and Output: 12/20/16 12/20/16 06:59 18:59 Intake Total 240 Balance 240 - Medications Medications: Current Medications Acetaminophen (Tylenol 325mg Tab) 650 mg PO Q6 PRN PRN Reason: Other Last Admin: 12/18/16 08:55 Dose: 650 mg Amlodipine Besylate (Norvasc) 10 mg PO DAILY [facility] Last Admin: 12/20/16 11:08 Dose: 10 mg Enoxaparin Sodium (Lovenox) 40 mg SC DAILY [facility] Last Admin: 12/20/16 11:08 Dose: 40 mg Hydrochlorothiazide (Hydrodiuril) 50 mg PO DAILY [facility] Last Admin: 12/20/16 11:08 Dose: 50 mg Levetiracetam 500 mg/ Sodium (Chloride) 105 mls @ 420 mls/hr IVPB Q12H [facility] Last Admin: 12/20/16 03:03 Dose: 420 mls/hr Ceftriaxone Sodium 1 gm/ (Sodium Chloride) 100 mls @ 100 mls/hr IVPB Q24H [facility] Last Admin: 12/20/16 11:11 Dose: 100 mls/hr Lisinopril (Zestril) 10 mg PO Q24H [facility] Last Admin: 12/19/16 17:50 Dose: 10 mg Multivitamins (Hexavitamin) 1 tab PO DAILY [facility] Last Admin: 12/20/16 11:08 Dose: 1 tab Pantoprazole Sodium (Protonix Ec Tab) 40 mg PO DAILY [facility] Last Admin: 12/20/16 11:08 Dose: 40 mg - Labs Labs: 12/19/16 10:04 12/19/16 10:04 Assessment and Plan (1) Alcohol intoxication delirium Status: Acute (2) Alcohol related seizure Status: Acute (3) UTI (urinary tract infection) Status: Acute
[2016-12-20 12:45] VITALS: TEMP 97.9
--- NOTE | 2016-12-20 13:28 | CARD ---
APPROVED REPORT EKG Measurement Heart [id number] CO [id number] <Conclusion> Sinus tachycardia Moderate voltage criteria for LVH, may be normal variant Borderline ECG
--- NOTE | 2016-12-20 14:56 | CP.PCM.PN ---
Subjective - Date & Time of Evaluation Date of Evaluation: 12/20/16 Time of Evaluation: 14:25 - Subjective Subjective: Pt seen and examine d today, states feels fine, seizure free, denies any headache, chest pain, dizziness No overnight events reported by RN Objective - Vital Signs/Intake and Output Vital Signs (last 24 hours): Temp Pulse Resp BP Pulse Ox 97.9 F 87 20 177/91 H 98 12/20/16 12:00 12/20/16 00:00 12/20/16 00:00 12/20/16 12:02 12/20/16 00:00 Intake and Output: 12/20/16 12/20/16 06:59 18:59 Intake Total 240 400 Balance 240 400 - Medications Medications: Current Medications Acetaminophen (Tylenol 325mg Tab) 650 mg PO Q6 PRN PRN Reason: Other Last Admin: 12/18/16 08:55 Dose: 650 mg Amlodipine Besylate (Norvasc) 10 mg PO DAILY [facility] Last Admin: 12/20/16 11:08 Dose: 10 mg Enoxaparin Sodium (Lovenox) 40 mg SC DAILY [facility] Last Admin: 12/20/16 11:08 Dose: 40 mg Hydrochlorothiazide (Hydrodiuril) 50 mg PO DAILY [facility] Last Admin: 12/20/16 11:08 Dose: 50 mg Ceftriaxone Sodium 1 gm/ (Sodium Chloride) 100 mls @ 100 mls/hr IVPB Q24H [facility] Last Admin: 12/20/16 11:11 Dose: 100 mls/hr Levetiracetam (Keppra) 500 mg PO BID [facility] Lisinopril (Zestril) 10 mg PO Q24H [facility] Last Admin: 12/19/16 17:50 Dose: 10 mg Multivitamins (Hexavitamin) 1 tab PO DAILY [facility] Last Admin: 12/20/16 11:08 Dose: 1 tab Pantoprazole Sodium (Protonix Ec Tab) 40 mg PO DAILY [facility] Last Admin: 12/20/16 11:08 Dose: 40 mg - Labs Labs: 12/19/16 10:04 12/19/16 10:04 - Constitutional Appears: No Acute Distress - Respiratory Exam Respiratory Exam: Clear to Ausculation Bilateral, NORMAL BREATHING PATTERN - Cardiovascular Exam Cardiovascular Exam: REGULAR RHYTHM, +S1, +S2 - Neurological Exam Neurological Exam: Alert, Awake, Oriented x3 Assessment and Plan - Assessment and Plan (Free Text) Assessment: A/P 46 yr old female admitted for Alcohol intoxication, Abdominal pain, Seizure, hypertension Bp stable Dr. vásquez consulted for seizure Pt seizure free MRI brain - No evidence of mass lesion mass effect or midline shift. No evidence of acute pathology in the brain. Few scattered small foci of hyperintense FLAIR signal in the white matter may represent chronic microvascular ischemic disease. EEG- pending As per Dr. Vásquez, pt cleared fro discharge home with cassandra conner and f/u with Dr. Vásquez office and EEG out pt D/w with Dr. Salas, stable for discharge home today and f/u with PMD discharge instructions discussed with patient who understands and agrees with plan RX given for EEG AND MEDICATIONS
[2016-12-20 16:13] VITALS: BP 150/85
--- NOTE | 2016-12-21 00:04 | CP.PCM.DIS ---
Provider - Provider Date of Admission: 12/17/16 04:25 Attending physician: Mayo Salas MD Time Spent in preparation of Discharge (in minutes): 56 Diagnosis - Discharge Diagnosis (1) Alcohol intoxication delirium Status: Acute (2) Alcohol related seizure Status: Acute (3) UTI (urinary tract infection) Status: Acute Hospital Course - Lab Results Lab Results: Micro Results 12/17/16 Unknown Naris MRSA Culture (Admit) - Final MRSA NOT DETECTED Most Recent Lab Values WBC 9.7 K/uL (4.8-10.8) 12/19/16 10:04 RBC 4.17 Mil/uL (3.80-5.20) 12/19/16 10:04 Hgb 11.2 g/dL (11.0-16.0) 12/19/16 10:04 Hct 35.1 % (34.0-47.0) 12/19/16 10:04 MCV 84.0 fL (81.0-99.0) 12/19/16 10:04 MCH 26.9 pg (27.0-31.0) L 12/19/16 10:04 MCHC 32.0 g/dL (33.0-37.0) L 12/19/16 10:04 RDW 16.5 % (11.5-14.5) H 12/19/16 10:04 Plt Count 288 K/uL (130-400) 12/19/16 10:04 MPV 7.6 fL (7.2-11.7) 12/19/16 10:04 Neut % (Auto) 76.1 % (50.0-75.0) H 12/19/16 10:04 Lymph % (Auto) 15.0 % (20.0-40.0) L 12/19/16 10:04 Owen % (Auto) 5.2 % (0.0-10.0) 12/19/16 10:04 Eos % (Auto) 3.1 % (0.0-4.0) 12/19/16 10:04 Baso % (Auto) 0.6 % (0.0-2.0) 12/19/16 10:04 Neut # 7.3 K/uL (1.8-7.0) H 12/19/16 10:04 Lymph # 1.5 K/uL (1.0-4.3) 12/19/16 10:04 Owen # 0.5 K/uL (0.0-0.8) 12/19/16 10:04 Eos # 0.3 K/uL (0.0-0.7) 12/19/16 10:04 Baso # 0.1 K/uL (0.0-0.2) 12/19/16 10:04 Puncture Site R rad 12/17/16 05:02 pCO2 57 mm/Hg (35-45) H 12/17/16 05:02 pO2 141 mm/Hg (80-100) H 12/17/16 05:02 HCO3 25.6 mmol/L (21-28) 12/17/16 05:02 ABG pH 7.30 (7.35-7.45) L 12/17/16 05:02 ABG Total CO2 29.7 mmol/L (22-28) H 12/17/16 05:02 ABG O2 Saturation 100.0 % (95-98) H 12/17/16 05:02 ABG Base Excess 0.8 mmol/L (-2.0-3.0) 12/17/16 05:02 ABG Hemoglobin 10.2 g/dL (11.7-17.4) L 12/17/16 05:02 ABG Carboxyhemoglobin 2.3 % (0.5-1.5) H 12/17/16 05:02 POC ABG HHb (Measured) 0.0 % (0.0-5.0) 12/17/16 05:02 ABG Methemoglobin 1.2 % (0.0-3.0) 12/17/16 05:02 Arik Test Pos 12/17/16 05:02 Hgb O2 Saturation 96.4 % (95.0-98.0) 12/17/16 05:02 Liter Flow 4.0 12/17/16 05:02 Sodium 138 mmol/L (132-148) 12/19/16 10:04 Potassium 3.8 mmol/L (3.6-5.2) 12/19/16 10:04 Chloride 99 mmol/L (98-107) 12/19/16 10:04 Carbon Dioxide 25 mmol/L (22-30) 12/19/16 10:04 Anion Gap 18 (10-20) 12/19/16 10:04 BUN 13 mg/dL (7-17) 12/19/16 10:04 Creatinine 1.0 MG/DL (0.7-1.2) 12/19/16 10:04 Est GFR ( Amer) > 60 12/19/16 10:04 Est GFR (Non-Af Amer) 59 12/19/16 10:04 Random Glucose 111 mg/dL (65-105) H 12/19/16 10:04 Calcium 9.3 mg/dl (8.6-10.4) 12/19/16 10:04 Phosphorus 3.3 mg/dL (2.5-4.5) 12/19/16 10:04 Magnesium 1.9 mg/dL (1.6-2.3) 12/19/16 10:04 Total Bilirubin 0.7 mg/dL (0.2-1.3) 12/19/16 10:04 AST 43 U/L (14-36) H D 12/19/16 10:04 ALT 56 U/L (9-52) H 12/19/16 10:04 Alkaline Phosphatase 71 U/L (38-126) 12/19/16 10:04 Total Protein 7.8 g/dL (6.3-8.3) 12/19/16 10:04 Albumin 3.9 g/dL (3.5-5.0) 12/19/16 10:04 Globulin 3.9 gm/dL (2.2-3.9) 12/19/16 10:04 Albumin/Globulin Ratio 1.0 (1.0-2.1) 12/19/16 10:04 Lipase 178 U/L (23-300) 12/17/16 01:46 Urine Color Colorless (YELLOW) 12/17/16 01:29 Urine Clarity Clear (Clear) 12/17/16 01:29 Urine pH 6.0 (5.0-8.0) 12/17/16 01:29 Ur Specific [place] 1.002 (1.003-1.030) L 12/17/16 01:29 Urine Protein Negative mg/dL (NEGATIVE) 12/17/16 01:29 Urine Glucose (UA) Normal mg/dL (Normal) 12/17/16 01:29 Urine Ketones Negative mg/dL (NEGATIVE) 12/17/16 01:29 Urine Blood Negative (NEGATIVE) 12/17/16 01:29 Urine Nitrate Negative (NEGATIVE) 12/17/16 01:29 Urine Bilirubin Negative (NEGATIVE) 12/17/16 01:29 Urine Urobilinogen Normal mg/dL (0.2-1.0) 12/17/16 01:29 Ur Leukocyte Esterase Neg Mignon/uL (Negative) 12/17/16 01:29 Urine WBC (Auto) 1 /hpf (0-5) 12/17/16 01:29 Urine RBC (Auto) < 1 /hpf (0-3) 12/17/16 01:29 Urine HCG, Qual Negative (NEGATIVE) 12/17/16 01:29 Urine Opiates Screen Negative (NEGATIVE) 12/17/16 02:24 Urine Methadone Screen Negative (NEGATIVE) 12/17/16 02:24 Ur Barbiturates Screen Negative (NEGATIVE) 12/17/16 02:24 Ur Phencyclidine Scrn Negative (NEGATIVE) 12/17/16 02:24 Ur Amphetamines Screen Negative (NEGATIVE) 12/17/16 02:24 U Benzodiazepines Scrn Negative (NEGATIVE) 12/17/16 02:24 U Oth Cocaine Metabols Negative (NEGATIVE) 12/17/16 02:24 U Cannabinoids Screen Negative (NEGATIVE) 12/17/16 02:24 Alcohol, Quantitative 257 mg/dl (0-10) H 12/17/16 02:00 - Hospital Course Hospital Course: 46 yr old female admitted for Alcohol intoxication, Abdominal pain, Seizure, hypertension Bp stable Dr. gardiner consulted for seizure Pt seizure free MRI brain - No evidence of mass lesion mass effect or midline shift. No evidence of acute pathology in the brain. Few scattered small foci of hyperintense FLAIR signal in the white matter may represent chronic microvascular ischemic disease. EEG- pending As per Dr. Gardiner, pt cleared fro discharge home with p.holly conner and f/u with Dr. Gardiner office and EEG out pt stable for discharge home today and f/u with PMD discharge instructions discussed with patient who understands and agrees with plan RX given for EEG AND MEDICATIONS Discharge Exam - Head Exam Head Exam: ATRAUMATIC, NORMAL INSPECTION, NORMOCEPHALIC - Eye Exam Eye Exam: EOMI, Normal appearance, PERRL Pupil Exam: NORMAL ACCOMODATION, PERRL - ENT Exam ENT Exam: Mucous Membranes Moist - Respiratory Exam Respiratory Exam: Clear to PA & Lateral, NORMAL BREATHING PATTERN - Cardiovascular Exam Cardiovascular Exam: REGULAR RHYTHM, +S1, +S2 - GI/Abdominal Exam GI & Abdominal Exam: Normal Bowel Sounds - Neurological Exam Neurological exam: Alert, CN II-XII Intact, Normal Gait, Oriented x3, Reflexes Normal - Psychiatric Exam Psychiatric exam: Normal Affect, Normal Mood Discharge Plan - Discharge Medications Prescriptions: Multivitamins [Hexavitamin] 1 tab PO DAILY #30 tab hydroCHLOROthiazide [Hydrodiuril] 50 mg PO DAILY #30 tab levETIRAcetam [Keppra] 500 mg PO BID #60 tab amLODIPine [Norvasc] 10 mg PO DAILY #30 tab Pantoprazole [Protonix EC Tab] 40 mg PO DAILY #20 ect Lisinopril [Zestril] 10 mg PO Q24H #30 tab - Follow Up Plan Condition: STABLE Disposition: HOME/ ROUTINE Instructions: Alcohol Intoxication (DC), Acute Abdominal Pain (DC), Acute Abdominal Pain (GEN), Alcohol Withdrawal (DC) Additional Instructions: f/u with Dr. Salas office in 1 week/ PMD f/u with Dr. Fried office in 1 week- call for appointment out pt EEG at [facility] - call fo r appointment Continue medication as per Med. Rec.
== END 2016-12-20 16:00 | disposition home or self-care (01) | DRG 897 ==
LOC: C.ER 00:27 → SUPCPDRO 00:27 → C.9E 04:25 → C.9I 05:29
PROVIDERS: ADMIT Internal Medicine; ATTEND Internal Medicine
DX: F10.121 Alcohol abuse with intoxication delirium (principal); N39.0 Urinary tract infection, site not specified; G40.509 Epileptic seizures related to external causes, not intractable, without status epilepticus; I10 Essential (primary) hypertension; M19.90 Unspecified osteoarthritis, unspecified site; Y90.8 Blood alcohol level of 240 mg/100 ml or more